=== PATIENT | male | born 2000 | race Caucasian/White ===

== ENCOUNTER 2023-12-17 15:57 | Outpatient (CLI) | payer BC, SELFPAY | END 2023-12-17 15:58 | disposition home or self-care (01) | LOC: NFLDREF 01-05 12:37 | PROVIDERS: Visit Provider Physician Assistant | DX: R10.9 Unspecified abdominal pain (principal); R31.9 Hematuria, unspecified; R11.2 Nausea with vomiting, unspecified | CPT/HCPCS: 87086 ==

== ENCOUNTER 2023-12-17 17:16 | Emergency (ER) | payer BC, SELFPAY ==
[2023-12-17 17:26] VITALS: BP 113/69; PULSE 60; RESP 16; TEMP 36.7; O2SAT 99; BMI 24.3
--- NOTE | 2023-12-17 18:14 | CRLHL7_ITS ---
For Patients: As a result of the Century Cures Act, medical imaging exams and procedure reports are released immediately into your electronic medical record. You may view this report before your referring provider. If you have questions, please contact your health care provider. INDICATION: Right flank pain. TECHNIQUE: CT abdomen and pelvis without contrast. COMPARISON: None. FINDINGS: Lower chest: Unremarkable. Liver: Normal in size and attenuation. No suspicious masses. Gallbladder and bile ducts: No stones or inflammation. No biliary dilatation. Pancreas: Unremarkable. No mass or inflammation. Spleen: Normal in size. No masses. Adrenal glands: Normal in size. No nodules. Kidneys: Mild right-sided hydroureteronephrosis secondary to 4 millimeter obstructing right UPJ stone. Additional bilateral nonobstructing stones. GI tract: Mild colonic stool burden. Normal in caliber. No sign of mass or inflammation. Normal appendix. Vasculature: Abdominal aorta is normal in caliber. Lymph nodes: No lymphadenopathy. Peritoneum/Abdominal Wall: Unremarkable. No sign of mass or infiltration. No free air or significant free fluid. Pelvis: Unremarkable. No pelvic masses. Bones: Unremarkable for age. IMPRESSION: Mild right-sided hydroureteronephrosis secondary to 4 millimeter obstructing right UPJ stone. Additional bilateral nonobstructing renal stones. Please note that all CT scans at this facility use dose modulation, iterative reconstruction, and/or weight-based dosing when appropriate to reduce radiation dose to as low as reasonably achievable. Dictated by Celestino Genao MD @ 12/17/2023 6:59:50 PM (Electronically Signed)
--- NOTE | 2023-12-17 19:03 | ED.GENADULT ---
HPI - General Adult General Chief complaint: Flank Pain Stated complaint: possible kidney stone Time Seen by Provider: 12/17/23 17:18 History of Present Illness HPI narrative: This 23-year-old male comes in with right flank pain. He went to clinic today and was sent here because his neutrophil percentage was slightly up any seem to have pain that was worse when lying down. The patient does have a history of kidney stones and it seemed to be another expression of him passing a stone however the doctor who sent him here was concerned about possible appendicitis. The patient arrives here with normal vital signs. He states that he has right flank pain that comes and goes and he had associated nausea and vomiting. He does not report any abdominal pain and has not had any fevers. Related Data Home Medications ?Medication ?Instructions ?Recorded ?Confirmed emtricitabine 200 mg-tenofovir 1 tab PO DAILY 12/17/23 12/17/23 disoproxil fumarate 300 mg tablet sertraline 100 mg tablet 150 mg PO DAILY 12/17/23 12/17/23 Previous Rx's ?Medication ?Instructions ?Recorded hydrocodone 5 mg-acetaminophen 325 1 tab PO Q4-6H PRN pain #15 tabs 12/17/23 mg tablet ketorolac 10 mg tablet 10 mg PO TID PRN Abdominal 12/17/23 Discomfort 5 days #15 tabs ondansetron HCl 4 mg tablet 4 mg PO Q6H #20 tabs 12/17/23 tamsulosin 0.4 mg capsule (Flomax) 0.4 mg PO DAILY #10 caps 12/17/23 Allergies Allergy/AdvReac Type Severity Reaction Status Date / Time No Known Drug Allergies Allergy Verified 12/17/23 17:29 Review of Systems Status of ROS: Reports: 10 or more systems reviewed and unremarkable except as noted in History and below Narrative: Constitutional: No fevers, no weight gain or loss. Eyes: No discharge. No vision changes. HENT: No congestion, no sore throat, no ear pain. Cardiovascular: No chest pain, no palpitations. Respiratory: No shortness of breath, no wheezes, no cough. Gastrointestinal: No abdominal pain, no vomiting, no diarrhea. Right flank pain as described above. Genitourinary: No dysuria, no hematuria. Musculoskeletal: Normal range of motion. Skin: No rashes, no pruritis. Neurological: No dizziness, weakness, sensory change, speech change. Endo/Heme/Allergies: No bruising or bleeding. No polydipsia. Pysch: no suicidality, no anxiety, no insomnia. All other systems reviewed and are negative. Exam Narrative: Exam Narrative: Constitutional: Well-developed, well-nourished, no acute distress. HEENT: Normocephalic, atraumatic. Neck: Normal range of motion. Nontender. Supple. Heart: Regular. No murmurs. Normal rate. Intact distal pulses. Lungs: Clear to auscultation. No chest discomfort. No wheezes, rhonchi, or rales. Abdomen: Normal bowel sounds. Nontender. No rebound tenderness. Pain is reproduced when percussing over the right flank region. Genitalia: Deferred. Back: No midline tenderness. Normal range of motion. Extremities: Normal range of motion. No injury. Skin: Intact. No rash. Warm. No erythema or pallor. Neurologic: No altered sensation. No weakness. Alert and oriented. Psychiatric: No suicidality. No anxiety or depression. No insomnia. Nursing notes and vitals signs are reviewed. Const: Vital Signs, click to edit/add: Vital Signs - 24 hr 12/17/23 17:26 Temperature 98.1 F Pulse Rate [Pulse Oximeter] 60 Respiratory Rate 16 Blood Pressure [Ri ght Upper Arm] 113/69 Pulse Oximetry 99 Oxygen Delivery Me thod Room Air Course Vital Signs Vital signs: Initial Vital Signs Temperature 98.1 F 12/17/23 17:26 Temperature Source Temporal Artery Scan 12/17/23 17:26 Pulse Rate 60 12/17/23 17:26 Respiratory Rate 16 12/17/23 17:26 Blood Pressure 113/69 12/17/23 17:26 Blood Pressure Mean 83 12/17/23 17:26 Blood Pressure Position Sitting 12/17/23 17:26 Pulse Oximetry 99 12/17/23 17:26 Oxygen Delivery Method Room Air 12/17/23 17:26 Vital Signs Temperature 98.1 F 12/17/23 17:26 Pulse Rate 60 12/17/23 17:26 Respiratory Rate 16 12/17/23 17:26 Blood Pressure 113/69 12/17/23 17:26 Pulse Oximetry 99 12/17/23 17:26 Oxygen Delivery Method Room Air 12/17/23 17:26 Temperature 98.1 F 12/17/23 17:26 Pulse Rate 60 12/17/23 17:26 Respiratory Rate 16 12/17/23 17:26 Blood Pressure 113/69 12/17/23 17:26 Pulse Oximetry 99 12/17/23 17:26 Oxygen Delivery Method Room Air 12/17/23 17:26 Medical Decision Making MDM Narrative Medical decision making narrative: This patient comes in with symptoms that are suspicious for kidney stone. A CT scan without contrast is obtained and does show evidence of a 4 mm stone close to the right kidney in the proximal ureter. He has stone in similar position but up in the renal pelvis of his left kidney. There are other stones identified also in the kidneys. The patient currently is in no significant distress. His 4 mm stone is on the larger size of average but hopefully will be able to pass this without assistance of urologist. I did give him instructions regarding this if having difficulty. The patient received prescriptions for Toradol, [place], Zofran, and Flomax. Imaging Data CT scan - abdomen: Radiologist's impression: Mild right-sided hydroureteronephrosis secondary to 4 millimeter obstructing right UPJ stone. Additional bilateral nonobstructing renal stones. Discharge Plan Discharge Clinical Impression: Right ureteral calculus Patient Disposition: Home, Self-Care Condition: Stable Additional Instructions: Take medication as needed and indicated. Follow-up with primary physician or urologist if not improving. Return if symptoms are worsening. Prescriptions: New hydrocodone-acetaminophen 5-325 mg tablet 1 tab PO Q4-6H PRN (Reason: pain) Qty: 15 0RF ondansetron HCl 4 mg tablet 4 mg PO Q6H Qty: 20 0RF ketorolac 10 mg tablet 10 mg PO TID PRN (Reason: Abdominal Discomfort) 5 Days Qty: 15 0RF tamsulosin [Flomax] 0.4 mg capsule 0.4 mg PO DAILY Qty: 10 2RF No Action sertraline 100 mg tablet 150 mg PO DAILY emtricitabine-tenofovir (TDF) 200-300 mg tablet 1 tab PO DAILY Follow Up/Referrals: JAMES BONILLA DO [Primary Care Provider] - Stand Alone Forms: [employer] Info Instructions
== END 2023-12-17 19:40 | disposition home or self-care (01) ==
PROVIDERS: Emergency Provider Emergency Medicine Emergency Medical Services; PCP Student in an Organized Health Care Education/Training Program
DX: N20.1 Calculus of ureter (principal)
CPT/HCPCS: 74176; 99283; 99284